=== PATIENT | male | born 1930 | race Caucasian/White ===

== ENCOUNTER 2017-06-22 14:46 | Inpatient (IN) | payer MEDICARE ==
[2017-06-22] MEDS ORDERED: Albuterol/Ipratropium 3.0-0.5 MG/3 ML Neb Soln NEB ONE (14:53)
--- NOTE | 2017-06-22 14:53 | EDM.PDOC ---
ED HPI GENERAL MEDICAL PROBLEM - General Stated Complaint: SOB Time Seen by Provider: 06/22/17 14:46 Source of Information: Reports: Patient, Family History Limitations: Reports: Physical Impairment - History of Present Illness INITIAL COMMENTS - FREE TEXT/NARRATIVE: 86 y.o.w.m with h/o Colon CA and COPD came with hie caregiver to the ED due to SOB. Pt takes inhales. His POA called, she wants him to be admitted because she is on her way to [place] and pt was vomiting 3 times today. Pulse ox was 88 on RA. Pt denies other acute medical issues. 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 Pain Score (Numeric/FACES): 4 denies when asked Pain Score (Numeric/FACES): 0 - Related Data Allergies Allergy/AdvReac Type Severity Reaction Status Date / Time No Known Allergies Allergy Verified 06/22/17 15:23 Home Meds: Home Meds Albuterol [Ventolin HFA] 2 puff INH Q4H PRN 06/22/17 [History] Budesonide/Formoterol [Symbicort 160-4.5 MCG] 2 puff IH BID 06/22/17 [History] Cholecalciferol (Vitamin D3) [D3-2000] 2,000 unit PO DAILY 06/22/17 [History] Hypromellose [Genteal Mild] 1 drop EYEBOTH BID 06/22/17 [History] Ipratropium/Albuterol Sulfate [Iprat-Albut 0.5-3(2.5) mg/3 ml] 3 ml IH BID 06/22 [History] Omeprazole 20 mg PO DAILY 06/22/17 [History] Polyethylene Glycol 3350 [MiraLAX] 17 gm PO BID 06/22/17 [History] Tiotropium [Spiriva Handihaler] 18 mcg IH DAILY 06/22/17 [History] Vit A/Vit C/Vit E/Zinc/Copper [Preservision] 2 each PO DAILY 06/22/17 [History] Albuterol/Ipratropium [DuoNeb 3.0-0.5 MG/3 ML] 3 ml INH ONETIME PRN neb [Rx] Levofloxacin [Levaquin] 500 mg PO Q24H 7 Days tablet 06/25/17 [Rx] Topiramate [Topamax] 25 mg PO BID #60 tablet 06/25/17 [Rx] predniSONE [Prednisone] 20 mg PO BID #10 tablet 06/25/17 [Rx] Past Medical History Neurological History: Reports: Other (See Below) Other Neuro History: forgetful - Past Surgical History GI Surgical History: Reports: Colonoscopy Social & Family History - Tobacco Use Smoking Status *Q: Former Smoker - Alcohol Use Days Per Week of Alcohol Use: 7 Number of Drinks Per Day: 1 Total Drinks Per Week: 7 - Recreational Drug Use Recreational Drug Use: No ED ROS GENERAL - Review of Systems Review Of Systems: Unable To Obtain ED EXAM, GENERAL - Physical Exam Exam: See Below Exam Limited By: Physical Impairment General Appearance: Alert, WD/WN, Mild Distress, Obese Eye Exam: Bilateral Eye: Normal Inspection Ears: Normal External Exam Ear Exam: Bilateral Ear: Auricle Normal Nose: Normal Inspection, Normal Mucosa Throat/Mouth: Normal Inspection, Normal Lips Head: Atraumatic, Normocephalic Neck: Normal Inspection, Supple, Non-Tender Respiratory/Chest: Respiratory Distress, Wheezing, Prolonged Expiration Cardiovascular: Normal Peripheral Pulses, Regular Rate, Rhythm, No Edema, No Gallop Peripheral Pulses: 1+: Radial (R) GI/Abdominal: Soft, Non-Tender, No Organomegaly, Distended, Tender (colostomy bag in place), Abnormal Bowel Sounds (Male) Exam: Deferred Rectal (Males) Exam: Deferred Back Exam: Normal Inspection, Full Range of Motion Extremities: Normal Inspection, Normal Range of Motion Neurological: Alert, Oriented, CN II-XII Intact, Normal Cognition, Abnormal Gait (weakness) Psychiatric: Normal Affect, Normal Mood Skin Exam: Warm, Dry, Intact, Normal Color, No Rash Lymphatic: No Adenopathy Course - Vital Signs Text/Narrative:: 86 y.o.w.m with h/o Colon CA and COPD came with hie caregiver to the ED due to SOB. Pt takes inhales. His POA called, she wants him to be admitted because she is on her way to [place] and pt was vomiting 3 times today. Pulse ox was 88 on RA. Pt denies other acute medical issues. BP 133/66 pulse ox 88 on RA pulse 83 temp 35.6 PE: COPD, Abd. dyscomfort Imaging: CXR: CAPD Abd. small mass in pelvis (Dr. Asencio) CT abd/pelvis: Partial SBO/prolapsed small bowel through anal canal Labs: WBC Nl Impression: COPD exacerbation, Partial SBO/prolapst small bowel through anal canal, H/O Colon CA Tx: Duonem, Solumedrol, Zofran Reexam: Pt improved 9.32pm: Consultation: Dr. Hines, Surgeon: Admit for obs, no acute surgical procedure indicated. 9.45pm: Consultation: Dr. Garcia: Accepted the pt for admission OBS plan: Admit to OBS Last Recorded V/S: Last Vital Signs Temp 36.9 C 06/25/17 08:00 Pulse 88 06/25/17 08:00 Resp 18 06/25/17 08:00 BP 140/74 06/25/17 08:00 Pulse Ox 91 L 06/25/17 08:00 - Orders/Labs/Meds Labs: Laboratory Tests 06/22/17 06/22/17 06/22/17 Range/Units 15:15 15:15 15:15 WBC 10.2 (4.5-12.0) X10-3/uL RBC 4.82 (4.30-5.75) x10(6)uL Hgb 15.9 H (11.5-15.5) g/dL Hct 47.2 (30.0-51.3) % MCV 97.9 H (80-96) fL MCH 33.0 (27.7-33.6) pg MCHC 33.7 (32.2-35.4) g/dL RDW 13.8 (11.5-15.5) % Plt Count 275 (125-369) X10(3)uL MPV 8.2 (7.4-10.4) fL Add Manual Diff Yes Neutrophils % (Manual) 89 H (46-82) % Lymphocytes % (Manual) 3 L (13-37) % Monocytes % (Manual) 8 (4-12) % PT 12.0 H (8.7-11.1) INR 1.19 H (0.89-1.13) Sodium 141 (135-145) mmol/L Potassium 4.6 (3.5-5.3) mmol/L Chloride 102 (100-110) mmol/L Carbon Dioxide 29 (21-32) mmol/L BUN 21 H (7-18) mg/dL Creatinine 1.1 (0.70-1.30) mg/dL Est Cr Clr Drug Dosing TNP Estimated GFR (MDRD) > 60 (>60) BUN/Creatinine Ratio 19.1 (9-20) Glucose 143 H (80-116) mg/dL Calcium 9.8 (8.6-10.2) mg/dL Total Bilirubin 0.9 (0.1-1.3) mg/dL Direct Bilirubin 0.23 H (0.10-0.20) mg/dL AST 17 (5-25) IU/L ALT 18 (12-36) U/L Alkaline Phosphatase 85 (56-112) IU/L NT-Pro-B Natriuret Pep (<=450) pg/mL Total Protein 8.0 (6.0-8.0) g/dL Albumin 3.9 (3.2-4.6) g/dL Amylase 45 (25-115) U/L 06/22/17 Range/Units 15:15 WBC (4.5-12.0) X10-3/uL RBC (4.30-5.75) x10(6)uL Hgb (11.5-15.5) g/dL Hct (30.0-51.3) % MCV (80-96) fL MCH (27.7-33.6) pg MCHC (32.2-35.4) g/dL RDW (11.5-15.5) % Plt Count (125-369) X10(3)uL MPV (7.4-10.4) fL Add Manual Diff Neutrophils % (Manual) (46-82) % Lymphocytes % (Manual) (13-37) % Monocytes % (Manual) (4-12) % PT (8.7-11.1) INR (0.89-1.13) Sodium (135-145) mmol/L Potassium (3.5-5.3) mmol/L Chloride (100-110) mmol/L Carbon Dioxide (21-32) mmol/L BUN (7-18) mg/dL Creatinine (0.70-1.30) mg/dL Est Cr Clr Drug Dosing Estimated GFR (MDRD) (>60) BUN/Creatinine Ratio (9-20) Glucose (80-116) mg/dL Calcium (8.6-10.2) mg/dL Total Bilirubin (0.1-1.3) mg/dL Direct Bilirubin (0.10-0.20) mg/dL AST (5-25) IU/L ALT (12-36) U/L Alkaline Phosphatase (56-112) IU/L NT-Pro-B Natriuret Pep 582 H (<=450) pg/mL Total Protein (6.0-8.0) g/dL Albumin (3.2-4.6) g/dL Amylase (25-115) U/L Meds: Medications Discontinued Medications Generic Name Dose Route Start Last Admin Trade Name Freq PRN Reason Stop Dose Admin Albuterol/Ipratropium 3 ml 06/22/17 14:53 06/22/17 14:59 Duoneb 3.0-0.5 Mg/3 Ml NEB 06/22/17 14:54 3 ml ONETIME ONE Administration Albuterol/Ipratropium 3 ml 06/22/17 21:50 Duoneb 3.0-0.5 Mg/3 Ml INH ONETIME PRN Shortness Of Breath/wheezing Artificial Tears 0 ml 06/23/17 10:13 06/25/17 08:45 Genteal Mild To Moderate Ophth Soln EYEBOTH 1 drop BID MIKEL Administration Cholecalciferol 2,000 units 06/24/17 09:00 Vitamin D3 PO DAILY MIKEL Diatrizoate Meglum/Diatrizoate Sod 30 ml 06/22/17 19:15 06/22/17 19:39 Gastrografin 37% PO 30 ml . DIRECTED MIKEL Administration Haloperidol 5 mg 06/23/17 10:51 06/23/17 11:45 Haldol PO 06/23/17 10:52 Not Given ONETIME ONE Haloperidol Lactate 2.5 mg 06/23/17 09:18 Haldol IM Q8H PRN Agitation Sodium Chloride 1,000 mls @ 125 mls/hr 06/23/17 00:45 06/23/17 00:35 Normal Saline IV 125 mls/hr ASDIRECTED MIKEL Administration Iopamidol 100 ml 06/22/17 19:11 06/22/17 19:39 Isovue-370 (76%) IV 06/22/17 19:12 100 ml . DIRECTED ONE Administration Levofloxacin 500 mg 06/24/17 09:15 06/25/17 08:46 Levaquin PO 500 mg Q24H MIKEL Administration Methylprednisolone Sodium Succinate 125 mg 06/22/17 14:59 06/22/17 16:02 Solu-Medrol IVPUSH 06/22/17 15:00 125 mg ONETIME ONE Administration Methylprednisolone Sodium Succinate 125 mg 06/22/17 22:15 06/23/17 00:11 Solu-Medrol IVPUSH Not Given Q8H MIKEL Methylprednisolone Sodium Succinate 125 mg 06/23/17 00:00 06/24/17 15:33 Solu-Medrol IVPUSH Not Given Q8H MIKEL Mometasone Furoate/Formoterol Fumar 2 puff 06/23/17 10:30 06/25/17 08:44 Dulera 200-5 Mcg IH 2 puff BID MIKEL Administration Pantoprazole Sodium 40 mg 06/23/17 10:30 06/24/17 15:33 Protonix Iv IVPUSH Not Given DAILY MIKEL Pantoprazole Sodium 40 mg 06/23/17 15:11 06/25/17 06:07 Protonix PO 40 mg 0600 MIKEL Administration Polyethylene Glycol 17 gm 06/24/17 09:00 06/25/17 08:45 Miralax PO 17 gm BID MIKEL Administration Prednisone 20 mg 06/23/17 15:15 06/25/17 08:46 Prednisone PO 20 mg BID MIKEL Administration Sodium Chloride 10 ml 06/22/17 16:06 06/23/17 00:26 Saline Flush FLUSH 10 ml ASDIRECTED PRN Administration Keep Vein Open Tiotropium [place] 18 mcg 06/23/17 09:00 06/25/17 08:46 Spiriva Handihaler INH 1 cap DAILY MIKEL Administration Topiramate 25 mg 06/23/17 15:15 06/25/17 08:46 Topamax PO 25 mg BID MIKEL Administration Vit C/Vit E/Zinc/Copper/Lutein 2 each 06/24/17 09:00 06/25/17 08:45 Ocuvite Lutein PO 2 each DAILY MIKEL Administration Departure - Departure Time of Disposition: 08:00 Disposition: Refer to Observation Condition: Fair Clinical Impression: COPD (chronic obstructive pulmonary disease) with chronic bronchitis - Discharge Information
[2017-06-22] MEDS ORDERED: methylPREDNISolone Sodium Succinate 125 MG/2 ML SDV IVPUSH ONE (14:59)
[2017-06-22] MEDS: Sodium Chloride 0.9% 10 ML Syringe FLUSH PRN ×2 (16:00→18:05)
[2017-06-22] MEDS ORDERED: Iopamidol 755 Mg/ML 100 ML Bottle IV ONE (19:11)
[2017-06-22] MEDS ORDERED: Diatrizoate Meglumine/Diatrizoate Sodium 37% 30 ML Bottle PO SCH (19:15)
[2017-06-22] MEDS ORDERED: Albuterol/Ipratropium 3.0-0.5 MG/3 ML Neb Soln INH PRN (21:50)
[2017-06-22] MEDS ORDERED: methylPREDNISolone Sodium Succinate 125 MG/2 ML SDV IVPUSH SCH (22:15)
[2017-06-23] MEDS: Sodium Chloride 0.9% 10 ML Syringe FLUSH PRN (00:26)
[2017-06-23] MEDS: methylPREDNISolone Sodium Succinate 125 MG/2 ML SDV IVPUSH SCH (00:26)
[2017-06-23] MEDS ORDERED: Sodium Chloride 0.9% 1,000 ML IV SCH (00:45)
--- NOTE | 2017-06-23 08:29 | CR ---
INDICATION: Short of breath. CHEST: A single AP upright portable view of the chest was obtained 06/22/2017. No comparisons were available. The heart did not appear enlarged. There appears to be some minimal calcification in the arch of the aorta. Heavy markings are noted at the left lung base, raising question of patchy pneumonia in that area versus fibrosis. No gross consolidating pneumonia or definite effusion was identified. The lungs appear to be hyperaerated with slightly flattened diaphragm leaves and interdigitation at the right hemidiaphragm leaf to a minimal degree. This suggests the possibility of COPD and should be correlated clinically. IMPRESSION: 1. No definite acute process, but cannot exclude patchy bronchopneumonia at the left lung base. 2. ASD aorta. 3. Possible COPD - correlate clinically. MTDD
--- NOTE | 2017-06-23 08:39 | CR ---
INDICATION: Abdominal pain, vomiting, history of colon CA February 2010. ABDOMEN: Four images of the abdomen in supine and upright projection were obtained 06/22/2017 and compared with line palletizer view from CT of the abdomen dated , again revealing cholecystectomy clips. The pattern of gas and feces revealed some minimal air-fluid levels in the right flank, which is in the area of a colostomy. The air-fluid levels are of questionable significance. No other significant air -fluid levels or dilatation of bowel was identified to strongly suggest a mechanically obstructive process. No free air was seen. Diaphragm leaves appear somewhat flattened, suggesting COPD. A rounded mass-like density is noted in the right pelvis of questionable significance. Etiology is indeterminate. CT may be warranted depending upon clinical correlation. Initially a repeat abdomen x-ray series may be helpful. Evidence of bowel surgery is again noted in this post rectal CA patient. No other suggestion of mass lesions or organomegaly could be identified. Calcifications are noted in the iliac and femoral arteries and minimally in the aorta. IMPRESSION: 1. Air-fluid levels in the right flank of questionable significance, could be related to a localized inflammatory process, could be incidental due to fluid ingestion. Follow-up may be warranted depending upon clinical correlation of that finding. 2. Rounded mass suggested in the right pelvis measuring approximately 42 mm. A true mass could be present. Follow-up may be warranted such as repeat x-ray of the abdomen or possibly CT for confirmation. 3. ASD. 4. Post cholecystectomy. 5. COPD. MTDD
[2017-06-23] MEDS ORDERED: Polyethylene Glycol 3350 Powder 17 GM Packet PO SCH (09:00)
[2017-06-23] MEDS ORDERED: Cholecalciferol (Vitamin D3) 1,000 Unit Tab PO SCH (09:00)
[2017-06-23] MEDS ORDERED: Haloperidol Lactate 5 MG/ML SDV IM PRN (09:18)
[2017-06-23] MEDS ORDERED: methylPREDNISolone Sodium Succinate 125 MG/2 ML SDV IVPUSH SCH (09:30)
--- NOTE | 2017-06-23 10:25 | PCM.HP ---
H&P History of Present Illness - General Date of Service: 06/23/17 Admit Problem/Dx: Admission Diagnosis/Problem Admission Diagnosis/Problem Abdominal pain Source of Information: Family, Old Records History Limitations: Reports: Uncooperative - History of Present Illness Initial Comments - Free Text/Narative: Sanjay came in yesterday today because of increased shortness of breath and abdominal pain. He was brought in by the caregiver. His symptoms apparently started a few days ago. He saw Dr. Stanley in the [facility] where he was diagnosed with a possible upper GI bleed,Dementia worsening. He also has COPD severe and his respiratory symptoms have worsened last couple days-hence the ER visit. Sanjay does not give much history and is uncooperative. 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 There is a h/o vomiting, coughing and having difficulty breathing. He is weaker.They feel that he might be considered for assisted placement. There is no report of any fever or chills ,and the abdominal pain is poorly localized and described. - Related Data Allergies/Adverse Reactions: Allergies Allergy/AdvReac Type Severity Reaction Status Date / Time No Known Allergies Allergy Verified 06/22/17 15:23 Home Medications: Home Meds Albuterol [Ventolin HFA] 2 puff INH Q4H PRN 06/22/17 [History] Budesonide/Formoterol [Symbicort 160-4.5 MCG] 2 puff IH BID 06/22/17 [History] Cholecalciferol (Vitamin D3) [D-2000] 2,000 unit PO DAILY 06/22/17 [History] Hypromellose [Genteal Mild] 1 drop EYEBOTH BID 06/22/17 [History] Ipratropium/Albuterol Sulfate [Iprat-Albut 0.5-3(2.5) mg/3 ml] 3 ml IH BID 06/22 [History] Omeprazole [Omeprazole] 20 mg PO DAILY 06/22/17 [History] Polyethylene Glycol 3350 [MiraLAX] 17 gm PO BID 06/22/17 [History] Tiotropium [Spiriva Handihaler] 18 mcg IH DAILY 06/22/17 [History] Vit A/Vit C/Vit E/Zinc/Copper [Preservision] 2 each PO DAILY 06/22/17 [History] Past Medical History HEENT History: Reports: Glaucoma, Impaired Vision Other HEENT History: wears glasses Cardiovascular History: Reports: SOB on Exertion, Other (See Below) Other Cardiovascular History: Wears TEDs during the day. Respiratory History: Reports: COPD Gastrointestinal History: Reports: Other (See Below) Other Gastrointestinal History: stomach ulcer Neurological History: Reports: Other (See Below) Other Neuro History: forgetful Psychiatric History: Reports: Dementia Oncologic (Cancer) History: Reports: Colon - Past Surgical History GI Surgical History: Reports: Colonoscopy Social & Family History - Family History Family Medical History: Noncontributory - Tobacco Use Smoking Status *Q: Former Smoker Used Tobacco, but Quit: No Second Hand Smoke Exposure: No - Caffeine Use Caffeine Use: Reports: Coffee Other Caffeine Use: De-caf coffee. - Alcohol Use Days Per Week of Alcohol Use: 7 Number of Drinks Per Day: 1 Total Drinks Per Week: 7 - Recreational Drug Use Recreational Drug Use: No H&P Review of Systems - Review of Systems: Review Of Systems: ROS reveals no pertinent complaints other than HPI. Exam - Exam Exam: See Below - Vital Signs Vital Signs: Last Vital Signs Temp 97.1 F 06/23/17 08:00 Pulse 122 H 06/23/17 08:00 Resp 20 06/23/17 08:00 BP 165/80 H 06/23/17 08:00 Pulse Ox 88 L 06/23/17 08:00 Weight: 70.715 kg - Exam Quality Assessment: No: Supplemental Oxygen General: Alert. No: Cooperative Psychiatric: Agitated, Other (belligerent,paranoic thoughts) Physical Exam Comments:: Patient declines any form of examination. He believes I am here to "harm" him. he wants to know the "truth".He does appear to be paranoic. Has respitarory distress but didn't refuses to use oxygenation. His thought process is illogical. - Patient Data Result Diagrams: 06/22/17 15:15 06/22/17 15:15 *Q Meaningful Use (ADM) - VTE *Q VTE Criteria *Q: - Stroke *Q Stroke Criteria *Q: - AMI *Q AMI Criteria *Q: - Problem List (1) COPD (chronic obstructive pulmonary disease) SNOMED Code(s): 51579643 ICD Code: J44.9 - CHRONIC OBSTRUCTIVE PULMONARY DISEASE, UNSPECIFIED Status : Acute Current Visit: Yes Qualifiers: COPD type: COPD with acute exacerbation Qualified Code(s): J44.1 - Chronic obstructive pulmonary disease with (acute) exacerbation (2) Dementia SNOMED Code(s): 41991205 ICD Code: F03.90 - UNSPECIFIED DEMENTIA WITHOUT BEHAVIORAL DISTURBANCE Status: Acute Current Visit: Yes Qualifiers: Dementia type: Alzheimer's disease Alzheimer's disease onset: late-onset Dementia behavioral disturbance: with behavioral disturbance Qualified Code(s) : G30.1 - Alzheimer's disease with late onset; F02.81 - Dementia in other diseases classified elsewhere with behavioral disturbance; F02.81 - Dementia in other diseases classified elsewhere with behavioral disturbance; F02.81 - Dementia in other diseases classified elsewhere with behavioral disturbance (3) General weakness SNOMED Code(s): 53572923 ICD Code: R53.1 - WEAKNESS Status: Acute Current Visit: Yes (4) Colostomy complication, unspecified SNOMED Code(s): 76640283 ICD Code: K94.00 - COLOSTOMY COMPLICATION, UNSPECIFIED Status: Acute Priority: Low Current Visit: No Problem List Initiated/Reviewed/Updated: Yes Orders Last 24hrs: Active Orders 24 hr Category Date Time Status Patient Status Manage Transfer [TRANSFER] Routine ADT 06/23/17 09:22 Active Notify Provider Consults [RC] ASDIRECTED Care 06/23/17 09:26 Active Consult to Physician [CONS] Stat Cons 06/23/17 09:26 Ordered BASIC METABOLIC PANEL,BMP [CHEM] AM Lab 06/24/17 05:11 Ordered CBC WITH AUTO DIFF [HEME] AM Lab 06/24/17 05:11 Ordered Budesonide/Formoterol [Symbicort 160-4.5 MCG] Med 06/24/17 09:00 Ordered 10.2 mcg IH DAILY Cholecalciferol (Vitamin D3) [Vitamin D3] Med 06/24/17 09:00 Active 2,000 units PO DAILY Haloperidol Lactate [Haldol] Med 06/23/17 09:18 Active 2.5 mg IM Q8H PRN Hypromellose [GenTeal Mild to Moderate Ophth Soln] Med 06/23/17 10:13 Active 0 ml EYEBOTH BID Lutein/Min/Vit C/Vit E Acetate [Ocuvite Lutein] Med 06/24/17 09:00 Active 2 each PO DAILY Omeprazole [Omeprazole] Med 06/24/17 09:00 Ordered 20 mg PO DAILY Pantoprazole [ProTONIX IV] Med 06/23/17 10:30 Ordered 40 mg IVPUSH DAILY Polyethylene Glycol 3350 [MiraLAX] Med 06/23/17 21:00 Ordered 17 gm PO BID Sodium Chloride 0.9% [Normal Saline] 1,000 ml Med 06/23/17 00:45 Active IV ASDIRECTED Tiotropium [Spiriva HandiHaler] Med 06/24/17 09:00 Ordered 18 mcg INH DAILY methylPREDNISolone Sod Succ [Solu-MEDROL] Med 06/23/17 00:00 Active 125 mg IVPUSH Q8H Resuscitation Status Routine Resus Stat 06/23/17 09:26 Ordered Medication Orders Albuterol/Ipratropium (Duoneb 3.0-0.5 Mg/3 Ml) 3 ml INH ONETIME PRN PRN Reason: Shortness Of Breath/wheezing Artificial Tears (Genteal Mild To Moderate Ophth Soln) 0 ml EYEBOTH BID [facility] Cholecalciferol (Vitamin D3) 2,000 units PO DAILY [facility] Haloperidol Lactate (Haldol) 2.5 mg IM Q8H PRN PRN Reason: Agitation Sodium Chloride (Normal Saline) 1,000 mls @ 125 mls/hr IV ASDIRECTED MIKEL Last Admin: 06/23/17 00:35 Dose: 125 mls/hr Methylprednisolone Sodium Succinate (Solu-Medrol) 125 mg IVPUSH Q8H [facility] Last Admin: 06/23/17 00:26 Dose: 125 mg Non-Formulary Medication (Budesonide/Formoterol [Symbicort 160-4.5 Mcg]) 10.2 mcg IH DAILY [facility] Non-Formulary Medication (Omeprazole [Omeprazole]) 20 mg PO DAILY MIKEL Polyethylene Glycol (Miralax) 17 gm PO BID [facility] Sodium Chloride (Saline Flush) 10 ml FLUSH ASDIRECTED PRN PRN Reason: Keep Vein Open Last Admin: 06/23/17 00:26 Dose: 10 ml Admin: 06/22/17 18:05 Dose: 10 ml Admin: 06/22/17 16:00 Dose: 10 ml Tiotropium [place] (Spiriva Handihaler) 18 mcg INH DAILY [facility] Vit C/Vit E/Zinc/Copper/Lutein (Ocuvite Lutein) 2 each PO DAILY [facility] Assessment/Plan Comment:: I will give the patient some Haldol to control his behavior. I asked Dr. Mccormick to see him for consultation and wisdom on what to do for his colostomy and possible small bowel obstruction. For now keep him nothing by mouth. I've ordered Solu Medrol IV it is able to retain the IV, after the haldol given.other discussion with his POA who would like him placed DNR. We'll also consult physical therapy, biomedical repair technician and Tele Psych.
[2017-06-23] MEDS ORDERED: Pantoprazole 40 MG Vial IVPUSH SCH (10:30)
[2017-06-23] MEDS ORDERED: Haloperidol 5 MG Tab PO ONE (10:51)
[2017-06-23] MEDS: Formoterol/Mometasone 200-5 MCG 8.8 GM Inhaler IH SCH ×3 (11:44→20:25)
[2017-06-23] MEDS: Hypromellose 0.3% Ophth Soln 15 ML Bottle EYEBOTH SCH ×3 (11:44→20:26)
[2017-06-23] MEDS: Tiotropium Inhaler 18 MCG Inhalation Powder Cap Kit of 5 INH SCH ×2 (11:44→14:57)
--- NOTE | 2017-06-23 12:20 | PCM.SN ---
- Free Text/Narrative Note: pt examined and chart reviewed. consult dictated. no evidence of obstruction. the perineal hernia is a long standing issue and is reducible. would apply duoderm to the area of the hernia to prevent skin breakdown.
[2017-06-23] MEDS ORDERED: Topiramate 25 MG Tab PO SCH (15:15)
[2017-06-23] MEDS: Pantoprazole 40 MG Tab.CR PO SCH (15:39)
[2017-06-23] MEDS: predniSONE 20 MG Tab PO SCH ×2 (15:39→20:26)
[2017-06-23] MEDS: Topiramate 50 MG Tab PO SCH ×2 (15:57→20:29)
--- NOTE | 2017-06-23 16:44 | CONS ---
DATE OF CONSULTATION: 06/23/2017 REASON FOR CONSULTATION: Peritoneal hernia, questionable partial obstruction. INDICATIONS FOR PROCEDURE: Mr. Ray is an 86-year-old white male, who is status post a low anterior resection secondary to an anal carcinoma in the past. He has a known history of a peritoneal hernia with some herniation of small intestine through the spot where his anus was excised with an abdominoperineal resection. This was first documented in 2013. Apparently, last night he was brought into the emergency department because of an increase in shortness of breath and abdominal pain. On CT scan, he was noted to have what appeared to be a possible partial small-bowel obstruction from this hernia. On questioning today, the patient denies any abdominal pain, he is uncooperative and has been refusing care through the course of the day. There have been no further episodes of vomiting from what I can ascertain. He is an extremely poor historian. ALLERGIES: He has no known drug allergies. MEDICATIONS: 1. Albuterol inhaler. 2. Symbicort inhaler. 3. Vitamin D3. 4. GenTeal Mild one drop for each eye. 5. Ipratropium-albuterol inhaler b.i.d. 6. Omeprazole 20 mg daily. 7. MiraLAX 17 g p.o. twice a day. 8. Spiriva HandiHaler. 9. PreserVision two twice a day. PAST MEDICAL HISTORY: Significant for glaucoma and impaired vision. Has a history of COPD. Has a history of peripheral edema. Has a past medical history of stomach ulcer as well as the dementia and the anal cancer. PAST SURGICAL HISTORY: Significant for abdominoperineal resection and colonoscopy in the past. FAMILY HISTORY: Noncontributory. SOCIAL HISTORY: He is a former smoker. Does drink decaf coffee and does have a drink per week. REVIEW OF SYSTEMS: Unobtainable due to lack of the patient's cooperation. PHYSICAL EXAMINATION: GENERAL: This is a well-developed, well-nourished male appearing in no acute distress, sitting in his chair. VITAL SIGNS: Temperature is 36.2, he has a pulse rate of 122, blood pressure 165/80, and an O2 saturation of 88% on room air. HEENT: Grossly within normal limits. LUNGS: Clear to auscultation. HEART: Had a regular rate and rhythm. ABDOMEN: Soft, nontender with material in his colostomy bag. Evaluation of his perineum reveals a peritoneal hernia with a small area of irritation in the skin, but no sign of ulceration or sinus tract. LABORATORY DATA: Laboratory evaluation yesterday revealed a white count of 10.2 and H and H of 15.9 and 47.2 with a platelet count of 275. PT and INR were 12 and 1.19 respectively. His electrolytes were essentially unremarkable. BUN was up slightly at 21, glucose of 143, direct bilirubin was 0.23, which was elevated. Total bilirubin was 0.9 and his BNP was 582. ASSESSMENT: With regard to his perineal hernia, he demonstrates absolutely no evidence of obstruction. The hernia appears to be functioning. The ostomy appears to be functioning and is not demonstrating any evidence of an obstruction. This is a longstanding problem. The hernia itself is reducible. Therefore, I do not think it is playing any role in any type of partial small- bowel obstruction. I would recommend the application of a small DuoDERM to the area on his peritoneal cavity to prevent further skin breakdown as this is just a red spot with no further injury. He is an extremely poor surgical candidate for any type of repair and at this point, close observation and close skin care is indicated. /[id number] CELESTINE/PAYAL EVANGELISTA
[2017-06-24] MEDS: Pantoprazole 40 MG Tab.CR PO SCH (05:39)
--- NOTE | 2017-06-24 08:49 | CONS ---
DATE OF CONSULTATION: 06/23/2017 A 60-minute clinical event. IDENTIFICATION: The patient is an 86-year-old male who was admitted to the inpatient medical unit at [facility] in [place], [place]. He is seen for psychiatric consultation. CHIEF COMPLAINT: "There was a big sign on top of the building that said hotel." HISTORY OF PRESENT ILLNESS: The patient is an 86-year-old male who has a history of dementia, but has been residing at his own place in [place], [place] with the assistance of [facility]. Evidently, one of his support team was visiting the patient yesterday and became concerned because he was appearing to be short of breath and complaining of some abdominal pain. He was brought to the emergency room for evaluation and after being assessed and given some Solu-Medrol to help with the shortness of breath, he was subsequently admitted to the inpatient medical unit. Evidently, since being admitted to the medical unit, the patient has been refusing his prescribed medications and he has been belligerent towards staff and acting paranoid and confused. Staff is stating that he has calmed down over the last few hours, but he is being assessed now for his belligerence and also in part to see if he is able to go back into his private home setting or whether he needs to be transferred over to an inpatient geriatric unit or Alzheimer's unit. The patient is stating that he has been struggling with confusion for some time now, but that he simply was out working and got tired and he states that he saw a sign that said hotel and so he came over to the building "to spend the night". When it turned out that he was in a medical facility, he states that he was a little upset about the turn of events. He states at this point in time he feels good and he would like to go home. He denies any issues from a medical or psychiatric standpoint. He states he is just upset about being at the hospital, not able to go home. He is alert and oriented to himself and to the city, but he does not know what day of the week it is and he is evasive with a lot of questions posed to him, but he does acknowledge he has been having trouble with his memory. One of his care workers who is there who helps him once a week by preparing meals states that he has episodes of confusion and that this is one of the worse episodes that she has seen, but staff is reporting that he seems more calm over the last few hours. MEDICATIONS: At the time of presentation, 1. MiraLAX. 2. Symbicort. 3. Omeprazole. 4. Vitamin D. 5. Eyedrops. ALLERGIES: No known drug allergies. PAST MEDICAL HISTORY: 1. Status post colostomy, remote. 2. The patient was admitted to rule out a GI obstruction and further workup of his shortness of breath. FAMILY PSYCHIATRIC AND CD HISTORY: None reported. PAST PSYCHIATRIC AND CD HISTORY: None reported. SOCIAL HISTORY: The patient is originally from [place], [place]. He has never been . He has no biological children. He is not involved in any current relationships. He is currently living in a home in [place], [place] with [facility] [employer] b.i.d. daily and also has another resource that helps prepare his meals on a weekly basis. 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 MENTAL STATUS EXAM: The patient is an 86-year-old white male in no apparent distress. Speech of regular rate and rhythm. The patient is cognitively oriented x1 to self, with prodding to city, but certainly not to date. Gait and station are not observed. This patient is seated for the appropriate psychiatric inpatient consult. Mood is upset. Affect is consistent with stated mood and also confused. There is no behavioral or stated evidence of acute suicidal or homicidal ideation or acute delusional symptoms or psychotic symptoms although there are paranoid themes present. Thought process, does again appeared confused. There are no acute maniac symptoms or loose associations evident. Judgement and insight do appear impaired secondary to his likely dementia condition. Motivation for help is fair. VITAL SIGNS: Stable at the time of consult. IMPRESSION: Conconully I: 1. Dementia, not otherwise specified, F03.90. 2. Depression, not otherwise specified, F32.9. 3. Anxiety disorder, not otherwise specified, F41.9. 4. Rule out psychosis, not otherwise specified, F29. 5. Rule out bipolar affect disease, mixed type. F31.60. Conconully II: None. Conconully III: 1. Status post colostomy, remote. 2. The patient being worked up for gastrointestinal obstruction. 3. Shortness of breath of unknown etiology. Conconully IV: Severe. Conconully V: 50 to 55. PLAN: 1. Recommend Topamax initiation 25 mg every day to b.i.d. dosing to help with mood lability. 2. Recommended when patient is medically stabilized as soon as he has his existing support services in place that he can be discharged back to home. 3. If the patient is uncooperative or his condition deteriorates from a behavioral standpoint or medical standpoint where he is not able to go back to his residence, then would recommend placement in a more structured living environment such as [facility] or [facility] Facility, but again as long as the patient is cooperative and able to take his meds and has support services in place, once he is medically stabilized, would appear more beneficial for the patient to try to have him placed back in the home to see if he can continue to function there as he has previously been doing. 4. We will continue follow up with the patient on an as needed basis while he remains on the inpatient medical unit. 5. We will follow up with the patient sooner if any complications in the interim. 6. Medication compliance. 7. Crisis plan is in place. /[id number] MURALI/PAYAL
[2017-06-24] MEDS ORDERED: Cholecalciferol (Vitamin D3) 1,000 Unit Tab PO SCH (09:00)
[2017-06-24] MEDS ORDERED: Non-Formulary Medication 1 Each (Omeprazole [Omeprazole] 20 MG) PO SCH (09:00)
[2017-06-24] MEDS: Formoterol/Mometasone 200-5 MCG 8.8 GM Inhaler IH SCH ×2 (09:04→20:24)
[2017-06-24] MEDS: Hypromellose 0.3% Ophth Soln 15 ML Bottle EYEBOTH SCH ×2 (09:06→20:25)
[2017-06-24] MEDS: Lutein/Minerals/Vitamin C/Vitamin E Acetate Cap PO SCH (09:09)
[2017-06-24] MEDS: Polyethylene Glycol 3350 Powder 17 GM Packet PO SCH ×2 (09:09→20:28)
[2017-06-24] MEDS: predniSONE 20 MG Tab PO SCH ×2 (09:10→20:29)
[2017-06-24] MEDS: Topiramate 50 MG Tab PO SCH ×2 (09:11→20:30)
--- NOTE | 2017-06-24 09:12 | PCM.PN ---
- General Info Date of Service: 06/24/17 Subjective Update: Patient's mood is much better this morning. He is more cooperative. I spoke to Lena HU-answered questions and her and the caregiver agreed that he is improved in terms of his mental status after Topamax was started yesterday. I appreciate the consultations from Dr. Mccormick and Isak. Functional Status: Reports: Pain Controlled - Review of Systems General: Reports: No Symptoms HEENT: Reports: No Symptoms Pulmonary: Reports: Shortness of Breath, Cough Gastrointestinal: Reports: No Symptoms - Patient Data Vitals - Most Recent: Last Vital Signs Temp 97.8 F 06/24/17 04:30 Pulse 103 H 06/24/17 04:30 Resp 20 06/24/17 04:30 BP 162/76 H 06/24/17 04:30 Pulse Ox 91 L 06/24/17 04:30 Weight - Most Recent: 70.715 kg Lab Results Last 24 Hours: Laboratory Results - last 24 hr 06/24/17 06/24/17 Range/Units 06:45 06:45 WBC 8.7 (4.5-12.0) X10-3/uL RBC 3.92 L (4.30-5.75) x10(6)uL Hgb 13.1 (11.5-15.5) g/dL Hct 38.8 (30.0-51.3) % MCV 99.1 H (80-96) fL MCH 33.4 (27.7-33.6) pg MCHC 33.7 (32.2-35.4) g/dL RDW 13.6 (11.5-15.5) % Plt Count 210 (125-369) X10(3)uL MPV 8.3 (7.4-10.4) fL Add Manual Diff Yes Neutrophils % (Manual) 91 H (46-82) % Lymphocytes % (Manual) 5 L (13-37) % Monocytes % (Manual) 4 (4-12) % Sodium 139 (135-145) mmol/L Potassium 4.2 (3.5-5.3) mmol/L Chloride 104 (100-110) mmol/L Carbon Dioxide 27 (21-32) mmol/L BUN 32 H D (7-18) mg/dL Creatinine 0.9 (0.70-1.30) mg/dL Est Cr Clr Drug Dosing 57.00 mL/min Estimated GFR (MDRD) > 60 (>60) BUN/Creatinine Ratio 35.6 H (9-20) Glucose 119 H (80-116) mg/dL Calcium 8.8 (8.6-10.2) mg/dL Med Orders - Current: Current Medications Albuterol/Ipratropium (Duoneb 3.0-0.5 Mg/3 Ml) 3 ml INH ONETIME PRN PRN Reason: Shortness Of Breath/wheezing Artificial Tears (Genteal Mild To Moderate Ophth Soln) 0 ml EYEBOTH BID [facility] Last Admin: 06/23/17 20:26 Dose: 1 drop Haloperidol Lactate (Haldol) 2.5 mg IM Q8H PRN PRN Reason: Agitation Mometasone Furoate/Formoterol Fumar (Dulera 200-5 Mcg) 2 puff IH BID [facility] Last Admin: 06/23/17 20:25 Dose: 2 puff Pantoprazole Sodium (Protonix) 40 mg PO 0600 [facility] Last Admin: 06/24/17 05:39 Dose: 40 mg Polyethylene Glycol (Miralax) 17 gm PO BID [facility] Prednisone (Prednisone) 20 mg PO BID [facility] Last Admin: 06/23/17 20:26 Dose: 20 mg Tiotropium Horse Shoe (Spiriva Handihaler) 18 mcg INH DAILY [facility] Last Admin: 06/23/17 14:57 Dose: 1 cap Topiramate (Topamax) 25 mg PO BID [facility] Last Admin: 06/23/17 20:29 Dose: 25 mg Vit C/Vit E/Zinc/Copper/Lutein (Ocuvite Lutein) 2 each PO DAILY [facility] Discontinued Medications Albuterol/Ipratropium (Duoneb 3.0-0.5 Mg/3 Ml) 3 ml NEB ONETIME ONE Stop: 06/22/17 14:54 Last Admin: 06/22/17 14:59 Dose: 3 ml Cholecalciferol (Vitamin D3) 2,000 units PO DAILY [facility] Diatrizoate Meglum/Diatrizoate Sod (Gastrografin 37%) 30 ml PO . DIRECTED [facility] Last Admin: 06/22/17 19:39 Dose: 30 ml Haloperidol (Haldol) 5 mg PO ONETIME ONE Stop: 01/24/18 10:52 Last Admin: 06/23/17 11:45 Dose: Not Given Sodium Chloride (Normal Saline) 1,000 mls @ 125 mls/hr IV ASDIRECTED MIKEL Last Admin: 06/23/17 00:35 Dose: 125 mls/hr Iopamidol (Isovue-370 (76%)) 100 ml IV . DIRECTED ONE Stop: 06/22/17 19:12 Last Admin: 06/22/17 19:39 Dose: 100 ml Methylprednisolone Sodium Succinate (Solu-Medrol) 125 mg IVPUSH ONETIME ONE Stop: 06/22/17 15:00 Last Admin: 06/22/17 16:02 Dose: 125 mg Methylprednisolone Sodium Succinate (Solu-Medrol) 125 mg IVPUSH Q8H [facility] Last Admin: 06/23/17 00:11 Dose: Not Given Methylprednisolone Sodium Succinate (Solu-Medrol) 125 mg IVPUSH Q8H [facility] Last Admin: 06/23/17 00:26 Dose: 125 mg Pantoprazole Sodium (Protonix Iv) 40 mg IVPUSH DAILY [facility] Sodium Chloride (Saline Flush) 10 ml FLUSH ASDIRECTED PRN PRN Reason: Keep Vein Open Last Admin: 06/23/17 00:26 Dose: 10 ml - Exam General: Alert HEENT: Pupils Equal Neck: Supple Lungs: Decreased Breath Sounds Cardiovascular: Regular Rate Psy/Mental Status: Alert, Normal Mood - Problem List & Annotations (1) COPD (chronic obstructive pulmonary disease) SNOMED Code(s): 28610906 Code(s): J44.9 - CHRONIC OBSTRUCTIVE PULMONARY DISEASE, UNSPECIFIED Status : Acute Current Visit: Yes Qualifiers: COPD type: COPD with acute exacerbation Qualified Code(s): J44.1 - Chronic obstructive pulmonary disease with (acute) exacerbation (2) Dementia SNOMED Code(s): 45148858 Code(s): F03.90 - UNSPECIFIED DEMENTIA WITHOUT BEHAVIORAL DISTURBANCE Status: Acute Current Visit: Yes Qualifiers: Dementia type: Alzheimer's disease Alzheimer's disease onset: late-onset Dementia behavioral disturbance: with behavioral disturbance Qualified Code(s) : G30.1 - Alzheimer's disease with late onset; F02.81 - Dementia in other diseases classified elsewhere with behavioral disturbance; F02.81 - Dementia in other diseases classified elsewhere with behavioral disturbance; F02.81 - Dementia in other diseases classified elsewhere with behavioral disturbance (3) General weakness SNOMED Code(s): 34538086 Code(s): R53.1 - WEAKNESS Status: Acute Current Visit: Yes (4) Colostomy complication, unspecified SNOMED Code(s): 00672517 Code(s): K94.00 - COLOSTOMY COMPLICATION, UNSPECIFIED Status: Acute Priority: Low Current Visit: No - Problem List Review Problem List Initiated/Reviewed/Updated: Yes - My Orders Last 24 Hours: My Active Orders 06/23/17 15:11 Pantoprazole [ProTONIX] 40 mg PO 0600 06/23/17 15:15 Topiramate [Topamax] 25 mg PO BID predniSONE 20 mg PO BID 06/24/17 08:00 CHIP Hose [Antiembolic Hose] [OM.PC] Routine 06/24/17 09:00 Polyethylene Glycol 3350 [MiraLAX] 17 gm PO BID - Plan Plan:: The plan is to keep Don one more day, continue oral prednisone and Topamax as previously prescribed. I've also added Levaquin orally -CXR was inconclusive for pneumonia-that he will continue on perhaps finish the course as an outpatient. Once again I appreciate the consultations from Dr. Parisi and Dr. Mccormick.
[2017-06-24] MEDS: Tiotropium Inhaler 18 MCG Inhalation Powder Cap Kit of 5 INH SCH (09:14)
[2017-06-24] MEDS: Levofloxacin 500 MG Tab PO SCH (10:36)
[2017-06-24] MEDS: methylPREDNISolone Sodium Succinate 125 MG/2 ML SDV IVPUSH SCH (15:33)
[2017-06-25] MEDS: Pantoprazole 40 MG Tab.CR PO SCH (06:07)
[2017-06-25] MEDS: Formoterol/Mometasone 200-5 MCG 8.8 GM Inhaler IH SCH (08:44)
[2017-06-25] MEDS: Polyethylene Glycol 3350 Powder 17 GM Packet PO SCH (08:45)
[2017-06-25] MEDS: Lutein/Minerals/Vitamin C/Vitamin E Acetate Cap PO SCH (08:45)
[2017-06-25] MEDS: Hypromellose 0.3% Ophth Soln 15 ML Bottle EYEBOTH SCH (08:45)
[2017-06-25] MEDS: Levofloxacin 500 MG Tab PO SCH (08:46)
[2017-06-25] MEDS: Tiotropium Inhaler 18 MCG Inhalation Powder Cap Kit of 5 INH SCH (08:46)
[2017-06-25] MEDS: predniSONE 20 MG Tab PO SCH (08:46)
[2017-06-25] MEDS: Topiramate 50 MG Tab PO SCH (08:46)
[2017-06-25 08:51] VITALS: BP 140/74
--- NOTE | 2017-06-25 13:30 | DISCH ---
DISCHARGE DATE: 06/25/2017 HOSPITAL COURSE: Sanjay Ray is an 86-year-old male, admitted with complicated shortness of breath, abdominal pain, underlying COPD. He was admitted. Chest x-ray revealed COPD and some early pneumonia changes. CT scan revealed an abdominal hernia with small-bowel obstruction. Was seen by Dr. Mccormick, felt to be nonsurgical. Was given a course of intravenous antibiotics and corticosteroids with increasing respiratory benefit. He was seen by Dr. Parisi in Telepsychiatry and recommendations, was started on Topamax 25 mg b.i.d. with good clinical improvement. At the time of discharge, was up, ambulating, colostomy was working well, mood appeared to be stabilized. We will ask caregivers in place. DISCHARGE MEDICATIONS: Please see med recon list. /[id number] LISE/PAYAL
--- NOTE | 2017-06-25 13:45 | DISCH ---
DISCHARGE DATE: 06/25/2017 DISCHARGE DIAGNOSES: Shortness of breath, abdominal pain, respiratory difficulty. HOSPITAL COURSE: Mr. Ray is an 86-year-old male admitted on 06/23/2017 with complicated abdominal pain, shortness of breath, and evidence of respiratory compromise underlying COPD. He was admitted to the hospital. Diagnostic studies were performed. CT scan revealed no major pathology, partial small bowel obstruction, and some herniation. He was seen by Dr. Mccormick. Nonsurgical in nature. Appetite improved. Breathing was comfortable, responded to antibiotic therapy and corticosteroid intervention. He was seen by Dr. Moreno Parisi in Psychiatry. Started on Topamax. DISPOSITION: At the time of discharge, he was comfortable. Colostomy was draining well, support services were in place, intervention and care as appropriate. DISCHARGE MEDICATIONS: Please see med recon list. /[id number] /PAYAL
== END 2017-06-25 11:26 | disposition home or self-care (01) | DRG 191 ==
LOC: FB.ED 14:46 → FB.MS 21:50 → FB.ED 21:50 → OBSVTOIN 06-23 09:33
PROVIDERS: ADMIT Family Medicine; ATTEND Family Medicine
DX: J44.1 Chronic obstructive pulmonary disease with (acute) exacerbation (principal); F02.81 Dementia in other diseases classified elsewhere, unspecified severity, with behavioral disturbance; K45.8 Other specified abdominal hernia without obstruction or gangrene; Z85.048 Personal history of other malignant neoplasm of rectum, rectosigmoid junction, and anus; Z93.3 Colostomy status; Z66 Do not resuscitate; Z87.891 Personal history of nicotine dependence; G30.1 Alzheimer's disease with late onset; R53.1 Weakness; R10.9 Unspecified abdominal pain; R06.02 Shortness of breath; R11.10 Vomiting, unspecified; H54.7 Unspecified visual loss; H40.9 Unspecified glaucoma; Z90.49 Acquired absence of other specified parts of digestive tract; Z87.11 Personal history of peptic ulcer disease; Z79.52 Long term (current) use of systemic steroids
CPT/HCPCS: 36415; 71045; 71260; 74019; 74177; 80048; 80076; 82150; 83880; 85025; 85610; 94640; 96374; 99285; A9270 ×2; J2930 ×2; J7040; J7050 ×3; J7620; Q9967; 96376; G0378; J7030; Q3014-GT

== ENCOUNTER 2018-08-08 14:01 | Inpatient (IN) | payer MEDICARE ==
[2018-08-08] MEDS ORDERED: Albuterol 8 GM Inhaler INH PRN (15:33)
--- NOTE | 2018-08-08 15:44 | CR ---
INDICATION: Hypoxia. CHEST: PA and lateral views of the chest were obtained 08/08/18 and compared with 06/22/17, revealing the heart to be normal in size and shape. The aorta is calcified in the arch area . Findings compatible with COPD are noted. There appears to be some infiltrate at the left lung base and also at the right lung base posteriorly. The left lung base infiltrate is suggested in the lingula. The right lung base infiltrate - atelectasis is suggested in the right lower lobe. There may be some pleuritis on the right with some blunting of the posterior sulcus on the right. No gross consolidating pneumonia or large effusion is identified. Somewhat diminished bone density raises question of osteomalacia or osteoporosis and should be correlated clinically. IMPRESSION: 1. Bibasilar parenchymal and right pleural changes, compatible with pneumonia and pleuritis at the right lower lobe and minimal pneumonia and/or fibrosis at the left lung base - lingula. 2. COPD. 3. ASD aorta. 4. Possible demineralization raising question of osteoporosis - correlate clinically. MTDD
[2018-08-08] MEDS ORDERED: Azithromycin 500 MG in Sodium Chloride 0.9% 250 ML IV ONE (16:02)
[2018-08-08] MEDS ORDERED: cefTRIAXone 1 GM in Sodium Chloride 0.9% 50 ML IV SCH (16:15)
[2018-08-08] MEDS: Sodium Chloride 0.9% 1,000 ML IV SCH (16:57)
[2018-08-08] MEDS: cefTRIAXone 1 GM Vial IVPUSH SCH (17:02)
[2018-08-08] MEDS: Polyethylene Glycol 3350 Powder 17 GM Packet PO SCH ×2 (20:55→21:00)
[2018-08-08] MEDS: Hypromellose 0.3% Ophth Soln 15 ML Bottle EYEBOTH SCH ×2 (20:55→21:00)
[2018-08-08] MEDS: Formoterol/Mometasone 200-5 MCG 8.8 GM Inhaler IH SCH (20:55)
[2018-08-08] MEDS: Albuterol/Ipratropium 3.0-0.5 MG/3 ML Neb Soln NEB SCH (20:56)
[2018-08-08] MEDS ORDERED: TOPIRAMATE 25 MG PO SCH (21:00)
--- NOTE | 2018-08-08 22:14 | HP ---
ADMISSION DATE: 08/08/2018 CHIEF COMPLAINT: Weakness and hypoxia. HISTORY OF PRESENT ILLNESS: Chase is an 87-year-old man from [place], with a history of severe COPD with previous pneumonias, colorectal cancer, status post permanent colostomy, and history of dementia. According to his caregiver who accompanies him, he has had declining strength over the past 2 weeks. He normally is able to get himself up and out of a chair and walk and feed himself normally. He has been not eating and drinking for the past few days and he has had a cough. He was seen in the clinic by Dr. Hale today and found to have an O2 saturation of 66% on room air, and he is now admitted. Chase is unable to give me a good history. He denies any current pain, but does have an obvious cough, weakness. PAST MEDICAL HISTORY: 1. Colectomy for colorectal cancer with colonoscopy. 2. Chronic COPD with previous pneumonias. 3. He has had history of gastric ulcer. 4. Chronic advancing dementia. 5. General decline in condition. MEDICATIONS: 1. DuoNeb with nebulizer at home. 2. Albuterol MDI. 3. Seroquel 25 mg at bedtime. 4. Spiriva HandiHaler one puff daily. 5. Omeprazole 20 mg daily. 6. Vitamin D3 2000 units daily. 7. Multiple vitamin with lutein one daily. 8. Artificial Tears b.i.d. ALLERGIES: None known. HABITS: Former smoker, none currently. No alcohol. FAMILY AND SOCIAL HISTORY: The patient is single, never been . He lives in his own apartment in [place] and has a daily caregiver and is looked after by his niece as well, Lena Bryant. REVIEW OF SYSTEMS: Not reliably obtainable from the patient, but negative for apparent fever. Positive for weakness, dyspnea, poor appetite, poor oral intake. No vomiting or diarrhea. No skin rash or swelling. PHYSICAL EXAMINATION: GENERAL: He is pale, thin, weak and quite cachectic. VITAL SIGNS: Blood pressure 134/57, pulse 88 and regular, temperature 98.4, O2 saturation 91% on 4 L nasal cannula oxygen, weight 146 pounds. SKIN: Anicteric. Warm, dry. HEENT: Shows his mouth to be dry and parched. LUNGS: Have rales at the left base. Distant breath sounds bilaterally. HEART: Regular without murmur or gallop. ABDOMEN: Normal bowel sounds. Soft and nontender. He has a functioning colostomy in the left lower quadrant with soft stool in the bag. EXTREMITIES: Warm and well perfused without edema. NEUROLOGIC: Reveals him to have the obvious dementia. He is able to answer with one-word sentences, and he moves his arms and legs spontaneously but has generalized weakness. LABORATORY DATA: Chest x-ray shows left lower lobe pneumonia and severe COPD. Blood work is pending. ASSESSMENT: 1. An 87-year-old with severe chronic obstructive pulmonary disease and now admitted with left lower lobe pneumonia and respiratory failure. 2. Chronic obstructive pulmonary disease. 3. Dementia. 4. History of colorectal cancer with proctocolectomy and colostomy. 5. History of gastric ulcer. PLAN: He is admitted to the hospital. We will continue his DNR status. We will treat him with IV antibiotics, fluid resuscitation, test him for influenza, and continue his nebulizer treatments. We will provide palliative care measures for Sanjay's obviously declining state of health, his underlying dementia, etc. /[id number] CHAS/PAYAL
[2018-08-09] MEDS: Pantoprazole 40 MG Tab.CR PO SCH (06:26)
[2018-08-09] MEDS ORDERED: Azithromycin 250 MG in Sodium Chloride 0.9% 250 ML IV ONE ×2 (07:09→17:00)
[2018-08-09] MEDS ORDERED: Iopamidol 755 Mg/ML 75 ML Bottle IV ONE (10:32)
[2018-08-09] MEDS: Albuterol/Ipratropium 3.0-0.5 MG/3 ML Neb Soln NEB SCH ×2 (10:32→21:35)
[2018-08-09] MEDS: Hypromellose 0.3% Ophth Soln 15 ML Bottle EYEBOTH SCH ×2 (10:36→21:36)
[2018-08-09] MEDS: Formoterol/Mometasone 200-5 MCG 8.8 GM Inhaler IH SCH ×2 (10:37→21:31)
[2018-08-09] MEDS: Tiotropium Inhaler 18 MCG Inhalation Powder Cap Kit of 5 INH SCH (10:38)
--- NOTE | 2018-08-09 10:38 | PN ---
DATE SEEN: 08/09/2018 HISTORY: Sanjay is an 87-year-old man with COPD and a history of colectomy and colostomy for colon cancer and dementia. He was admitted yesterday because of decline in general condition, cough, dyspnea, and weakness. He was found to have bilateral bibasilar pneumonia and had failed outpatient therapy with Levaquin. He is now on triple antibiotics IV. PHYSICAL EXAMINATION: GENERAL: Sanjay is awake and alert this morning. He still has forgetfulness, but is less confused than last night. VITAL SIGNS: Blood pressure 121/57, pulse 70 and regular, respirations 20, O2 saturation 96% on room air, temp 97.7, weight 146 pounds. SKIN: Clear without rash. HEENT: Mouth is dry. LUNGS: Basilar rales. HEART: Regular without murmur or gallop. ABDOMEN: Soft and nontender. Colostomy bag with soft contents. EXTREMITIES: Show no edema. LABORATORY DATA: On admission, normal CBC, creatinine 0.9, glucose this morning 92. Troponin less than 0.017. ASSESSMENT: 1. Bilateral pneumonia. 2. Chronic obstructive pulmonary disease. 3. Colostomy post colorectal cancer. 4. Dementia. PLAN: We will continue triple antibiotics today. Plan to convert his azithromycin to oral starting tomorrow if he is alert and cooperative and able to take p.o. well. We will continue his inhalation treatments for the COPD and provide palliative care measures for his underlying dementia, severe COPD, and general debility. I anticipate another 48 hours of acute hospital stay followed by plans to return to his apartment with full-time aide. /[id number] CHAS/PAYAL
[2018-08-09] MEDS: Polyethylene Glycol 3350 Powder 17 GM Packet PO SCH ×2 (10:39→21:38)
[2018-08-09] MEDS: Sodium Chloride 0.9% 10 ML Syringe FLUSH PRN ×2 (12:50→13:05)
--- NOTE | 2018-08-09 13:57 | CT ---
INDICATION: Infiltrate. CT CHEST WITHOUT CONTRAST: Spiral 3.75 mm axial sections were obtained through the chest without contrast, 08/09/18, with sagittal and coronal reconstructions and compared with 06/22/17. Total exam DLP = 454.81 mGy-cm. No mediastinal mass was identified. Calcification is noted in the arch of the aorta and brachiocephalic vessels, as well as coronary arteries. The heart, however, was not grossly enlarged. No pericardial effusion was seen. Pulmonary arteries are again somewhat dilated but unchanged from the previous study. A moderate sized fixed hiatal hernia is noted. A mild degree of mediastinal lymphadenopathy is again noted and is nonspecific. A large fatty mass is noted posteriorly and inferiorly at the left lung base, compatible with a stable lipoma. The upper abdomen included on the study showed evidence of cholecystectomy, left -sided colostomy, mild renal cortical scarring, and calcifications in the aorta , renal arteries, and origin of the celiac axis in the splenic artery and origin of the superior mesenteric artery. In the lungs, there are again noted heavy markings in the right lower lobe, left lower lobe and lingula, and minimally in the left upper lobe and in both apical areas to a mild degree. There is also suggestion, as previously, of some minimal fibrotic change at the apical portion of the right lower lobe. However, no evidence of a definite active infiltrate, effusion, or significant interval change was identified. A mild degree of emphysematous change is suggested. IMPRESSION: 1. Stable appearance of the chest. No acute abnormality is suggested. 2. Areas of probable pulmonary fibrosis are again noted and appear unchanged from the previous study. 3. 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 4. ASHD/ASD. 5. Post cholecystectomy. 6. Mild renal cortical scarring. 7. Left anterolateral abdominal wall colostomy. 8. Pulmonary arteries are again somewhat dilated but unchanged from the previous study. MTDD
[2018-08-09] MEDS: cefTRIAXone 1 GM Vial IVPUSH SCH (16:56)
[2018-08-09] MEDS: Sodium Chloride 0.9% 1,000 ML IV SCH (22:32)
[2018-08-10] MEDS: Pantoprazole 40 MG Tab.CR PO SCH (06:28)
--- NOTE | 2018-08-10 09:08 | PN ---
DATE SEEN: 08/10/2018 HISTORY OF PRESENT ILLNESS: History Don is an 87-year-old man with severe COPD, colostomy post colon cancer, and admission on 08/08/2018 for bilateral pneumonia. He had failed outpatient treatment with Levaquin. On admission, he was started on IV azithromycin, IV Rocephin, and IV vancomycin. His breathing and mental status improved significantly over the first 24 hours, and he states that he feels better this morning. PHYSICAL EXAMINATION: GENERAL: He is awake and able to answer questions appropriately. VITAL SIGNS: Blood pressure 120/61, pulse 66 and regular, respirations 20, O2 saturation 93% on 2 L nasal cannula, and weight 148 pounds 3 ounces. SKIN: Clear. MOUTH: Dry. LUNGS: Clear to the bases with good air movement. HEART: Regular without murmur or gallop. ABDOMEN: Soft and nontender. Colostomy in left lower quadrant appears to be functioning normally. EXTREMITIES: Show no edema. ASSESSMENT: Bibasilar pneumonia, improving. PLAN: We will discontinue his Rocephin and start him on oral Augmentin. After today's morning dose of vancomycin, we will also discontinue this. Plan for discharge tomorrow if he continues to be stable and improved. We will continue to provide palliative care measures for his underlying COPD and dementia. /[id number] CHAS/PAYAL
[2018-08-10] MEDS: Amoxicillin/Clavulanate K 875-125 MG Tab PO SCH ×2 (09:59→20:11)
[2018-08-10] MEDS: Formoterol/Mometasone 200-5 MCG 8.8 GM Inhaler IH SCH ×2 (10:00→20:33)
[2018-08-10] MEDS: Albuterol/Ipratropium 3.0-0.5 MG/3 ML Neb Soln NEB SCH ×2 (10:01→20:33)
[2018-08-10] MEDS: Hypromellose 0.3% Ophth Soln 15 ML Bottle EYEBOTH SCH ×2 (10:01→20:33)
[2018-08-10] MEDS: Tiotropium Inhaler 18 MCG Inhalation Powder Cap Kit of 5 INH SCH (10:01)
[2018-08-10] MEDS: Polyethylene Glycol 3350 Powder 17 GM Packet PO SCH ×2 (10:01→20:33)
[2018-08-10] MEDS: Sodium Chloride 0.9% 1,000 ML IV SCH (13:26)
[2018-08-10] MEDS: Azithromycin 250 MG Tab PO SCH (14:08)
[2018-08-11] MEDS: Sodium Chloride 0.9% 10 ML Syringe FLUSH PRN (00:20)
[2018-08-11] MEDS: Sodium Chloride 0.9% 1,000 ML IV SCH (03:00)
[2018-08-11] MEDS: Pantoprazole 40 MG Tab.CR PO SCH (05:28)
[2018-08-11] MEDS: Amoxicillin/Clavulanate K 875-125 MG Tab PO SCH ×2 (09:48→19:51)
[2018-08-11] MEDS: Hypromellose 0.3% Ophth Soln 15 ML Bottle EYEBOTH SCH ×2 (09:48→20:17)
[2018-08-11] MEDS: Formoterol/Mometasone 200-5 MCG 8.8 GM Inhaler IH SCH ×2 (09:49→20:17)
[2018-08-11] MEDS: Polyethylene Glycol 3350 Powder 17 GM Packet PO SCH ×2 (09:49→20:17)
[2018-08-11] MEDS: Albuterol/Ipratropium 3.0-0.5 MG/3 ML Neb Soln NEB SCH ×2 (09:49→20:17)
[2018-08-11] MEDS: Tiotropium Inhaler 18 MCG Inhalation Powder Cap Kit of 5 INH SCH (09:49)
--- NOTE | 2018-08-11 11:38 | PN ---
DATE SEEN: 08/11/2018 HISTORY: Sanjay is an 87-year-old man with severe COPD, who is admitted with pneumonia. He has been on IV and now oral antibiotics. His pneumonia has progressed nicely; however, he still remains significantly hypoxic. O2 saturation with his oxygen off, at rest, sitting in a chair, was 83%. For this reason, we will set up home O2 to be worn in a continuous manner at 1.5 L/minute nasal cannula. /[id number] CHAS/PAYAL
[2018-08-11] MEDS: Azithromycin 250 MG Tab PO SCH (14:07)
[2018-08-12] MEDS: Pantoprazole 40 MG Tab.CR PO SCH (06:04)
--- NOTE | 2018-08-12 07:33 | PCM.PN ---
- General Info Date of Service: 08/12/18 Admission Dx/Problem (Free Text): Patient denies shortness of breath. chest pain, coughing and wheezing, fevers, chills. - Patient Data Vitals - Most Recent: Last Vital Signs Temp 98.6 F 08/12/18 00:00 Pulse 94 08/12/18 00:00 Resp 18 08/12/18 00:00 BP 146/70 H 08/12/18 00:00 Pulse Ox 92 L 08/12/18 00:00 Weight - Most Recent: 148 lb 14.4 oz Chaitanya Results Last 24 Hours: Microbiology 08/08/18 17:00 Aerobic Blood Culture - Preliminary Blood - Venous - Lab Draw NO GROWTH AFTER 3 DAYS Anaerobic Blood Culture - Preliminary NO GROWTH AFTER 3 DAYS 08/08/18 16:55 Aerobic Blood Culture - Preliminary Blood - Venous NO GROWTH AFTER 3 DAYS Anaerobic Blood Culture - Preliminary NO GROWTH AFTER 3 DAYS Med Orders - Current: Current Medications Albuterol (Ventolin Hfa) 0 gm INH Q4H PRN PRN Reason: Dyspnea Albuterol/Ipratropium (Duoneb 3.0-0.5 Mg/3 Ml) 3 ml NEB BID [facility] Last Admin: 08/11/18 20:17 Dose: 3 ml Amoxicillin/Clavulanate Potassium (Augmentin 875 Mg/125 Mg) 1 tab PO Q12H [facility] Last Admin: 08/11/18 19:51 Dose: 1 tab Artificial Tears (Genteal Mild To Moderate Ophth Soln) 0 ml EYEBOTH BID [facility] Last Admin: 08/11/18 20:17 Dose: 1 drop Azithromycin (Zithromax) 250 mg PO DAILY@1400 [facility] Stop: 08/13/18 23:59 Last Admin: 08/11/18 14:07 Dose: 250 mg Mometasone Furoate/Formoterol Fumar (Dulera 200-5 Mcg) 2 puff IH BID [facility] Last Admin: 08/11/18 20:17 Dose: 2 puff Pantoprazole Sodium (Protonix) 40 mg PO DAILY@0600 [facility] Last Admin: 08/12/18 06:04 Dose: 40 mg Polyethylene Glycol (Miralax) 17 gm PO BID [facility] Last Admin: 08/11/18 20:17 Dose: 17 gm Tiotropium [place] (Spiriva Handihaler) 18 mcg INH DAILY [facility] Last Admin: 08/11/18 09:49 Dose: 1 inhalation Discontinued Medications Ceftriaxone Sodium (Rocephin) 1 gm IVPUSH Q24H [facility] Last Admin: 08/09/18 16:56 Dose: 1 gm Vancomycin HCl 1 gm/ Sodium (Chloride) 250 mls @ 167 mls/hr IV Q12H [facility] Stop: 08/10/18 12:00 Last Admin: 08/10/18 06:20 Dose: 167 mls/hr Azithromycin 500 mg/ Sodium (Chloride) 250 mls @ 250 mls/hr IV ONETIME ONE Stop: 08/08/18 17:01 Last Admin: 08/08/18 17:11 Dose: 250 mls/hr Sodium Chloride (Normal Saline) 1,000 mls @ 75 mls/hr IV ASDIRECTED [facility] Last Admin: 08/11/18 03:00 Dose: 75 mls/hr Azithromycin 250 mg/ Sodium (Chloride) 250 mls @ 250 mls/hr IV ONETIME ONE Stop: 08/09/18 17:59 Last Admin: 08/09/18 16:58 Dose: 250 mls/hr Iopamidol (Isovue-370 (76%)) 75 ml IV ONETIME ONE Stop: 08/09/18 10:33 Non-Formulary Medication (Topiramate [Topamax]) 25 mg PO BID [facility] Sodium Chloride (Saline Flush) 10 ml FLUSH ASDIRECTED PRN PRN Reason: Keep Vein Open Last Admin: 08/11/18 00:20 Dose: 10 ml Vancomycin HCl (Pharmacy To Dose - Vancomycin) 1 dose .XX ASDIRECTED [facility] - Exam General: Alert, Cooperative Lungs: Clear to Auscultation, Normal Respiratory Effort Cardiovascular: Regular Rate, Regular Rhythm, No Murmurs Extremities: No Pedal Edema - Problem List & Annotations (1) Pneumonia SNOMED Code(s): 805679612 Code(s): J18.9 - PNEUMONIA, UNSPECIFIED ORGANISM Status: Acute Current Visit: Yes Qualifiers: Laterality: left Lung location: lower lobe of lung (2) Palliative care status SNOMED Code(s): 854174503 Code(s): Z51.5 - ENCOUNTER FOR PALLIATIVE CARE Status: Acute Current Visit: Yes (3) COPD (chronic obstructive pulmonary disease) SNOMED Code(s): 00316112 Code(s): J44.9 - CHRONIC OBSTRUCTIVE PULMONARY DISEASE, UNSPECIFIED Status : Acute Current Visit: No Qualifiers: (4) Dementia SNOMED Code(s): 11688794 Code(s): F03.90 - UNSPECIFIED DEMENTIA WITHOUT BEHAVIORAL DISTURBANCE Status: Acute Current Visit: No Qualifiers: (5) General weakness SNOMED Code(s): 57631928 Code(s): R53.1 - WEAKNESS Status: Acute Current Visit: No - Problem List Review Problem List Initiated/Reviewed/Updated: Yes - Plan Plan:: Charge to home on Augmentin, Zithromax and home O2. He already has caregivers so he does not need home health.
--- NOTE | 2018-08-12 07:43 | PCM.DCSUM1 ---
Discharge Summary - Hospital Course Free Text/Narrative:: Hospital course-patient was admitted had a chest x-ray and started on triple therapy with vancomycin, Rocephin and Zithromax. He was given oxygen therapy with nasal cannula. Day 2 and 08/[address] scan of the chest showed pulmonary fibrosis a lipoma. Patient has a history of COPD and dementia but no steroids were used. On 08/09/18 his Zithromax was changed to oral and his oxygen was improving. 08/10 Rocephin was stopped Augmentin was started vancomycin was DC 'd. On 314 the patient was supposed to be discharged but the weather was so bad they could not live at home O2. Today he will be discharged on Augmentin, Zithromax and home O2. Here he has breathing treatments for COPD. He has steady caregivers so he does not need home health. Brief History: This is a 87-year-old male patient presented to the clinic because of shortness of breath cough and fever. He was found to have a O2 sat of 66% and was sent to the hospital for admission. He was found to have a left lower lobe pneumonia placed on vancomycin, Rocephin and Zithromax. Diagnosis: Stroke: No - Discharge Data Discharge Date: 08/12/18 Discharge Disposition: Home, Self-Care 01 Condition: Good - Discharge Diagnosis/Problem(s) (1) Pneumonia SNOMED Code(s): 898784269 ICD Code: J18.9 - PNEUMONIA, UNSPECIFIED ORGANISM Status: Acute Current Visit: Yes Qualifiers: Laterality: left Lung location: lower lobe of lung (2) Palliative care status SNOMED Code(s): 651058972 ICD Code: Z51.5 - ENCOUNTER FOR PALLIATIVE CARE Status: Acute Current Visit: Yes (3) COPD (chronic obstructive pulmonary disease) SNOMED Code(s): 94780659 ICD Code: J44.9 - CHRONIC OBSTRUCTIVE PULMONARY DISEASE, UNSPECIFIED Status : Acute Current Visit: No Qualifiers: (4) Dementia SNOMED Code(s): 46195943 ICD Code: F03.90 - UNSPECIFIED DEMENTIA WITHOUT BEHAVIORAL DISTURBANCE Status: Acute Current Visit: No Qualifiers: (5) General weakness SNOMED Code(s): 65335486 ICD Code: R53.1 - WEAKNESS Status: Acute Current Visit: No - Patient Instructions Diet: Regular Diet as Tolerated Activity: As Tolerated Driving: Do Not Drive Showering/Bathing: May Shower Notify Provider of: Fever Other/Special Instructions: 1. Recheck with Dr. Stanley in 1 week. 2. Home O2 per respiratory therapy recommendations. - Discharge Plan Prescriptions/Med Rec: Amoxicillin/Clavulanate K [Augmentin 875-125 MG] 1 tab PO Q12H #16 tablet Azithromycin [Zithromax] 250 mg PO DAILY@1400 #4 tablet Home Medications: Home Meds Albuterol [Ventolin HFA] 2 puff INH Q4H PRN 06/22/17 [History] Ipratropium/Albuterol Sulfate [Iprat-Albut 0.5-3(2.5) mg/3 ml] 3 ml IH BID 06/22 [History] Polyethylene Glycol 3350 [MiraLAX] 17 gm PO BID 06/22/17 [History] Tiotropium [Spiriva Handihaler] 18 mcg IH DAILY 06/22/17 [History] Vit A/Vit C/Vit E/Zinc/Copper [Preservision] 1 each PO BID 06/22/17 [History] Cholecalciferol (Vitamin D3) [Vitamin D3] 5,000 unit PO DAILY 08/08/18 [History] Propylene Glycol [Systane Complete] 1 drop EYEBOTH QID 08/08/18 [History] Topiramate [Topamax] 25 mg PO BEDTIME 08/08/18 [History] Amoxicillin/Clavulanate K [Augmentin 875-125 MG] 1 tab PO Q12H #16 tablet [Rx] Azithromycin [Zithromax] 250 mg PO DAILY@1400 #4 tablet 08/12/18 [Rx] Oxygen Therapy Mode: Nasal Cannula - Discharge Summary/Plan Comment DC Time >30 min.: No - Patient Data Vitals - Most Recent: Last Vital Signs Temp 98.6 F 08/12/18 00:00 Pulse 94 08/12/18 00:00 Resp 18 08/12/18 00:00 BP 146/70 H 08/12/18 00:00 Pulse Ox 92 L 08/12/18 00:00 Weight - Most Recent: 148 lb 14.4 oz DIMAS Results - Last 24 hrs: Microbiology 08/08/18 17:00 Aerobic Blood Culture - Preliminary Blood - Venous - Lab Draw NO GROWTH AFTER 3 DAYS Anaerobic Blood Culture - Preliminary NO GROWTH AFTER 3 DAYS 08/08/18 16:55 Aerobic Blood Culture - Preliminary Blood - Venous NO GROWTH AFTER 3 DAYS Anaerobic Blood Culture - Preliminary NO GROWTH AFTER 3 DAYS Med Orders - Current: Current Medications Albuterol (Ventolin Hfa) 0 gm INH Q4H PRN PRN Reason: Dyspnea Albuterol/Ipratropium (Duoneb 3.0-0.5 Mg/3 Ml) 3 ml NEB BID [facility] Last Admin: 08/11/18 20:17 Dose: 3 ml Amoxicillin/Clavulanate Potassium (Augmentin 875 Mg/125 Mg) 1 tab PO Q12H [facility] Last Admin: 08/11/18 19:51 Dose: 1 tab Artificial Tears (Genteal Mild To Moderate Ophth Soln) 0 ml EYEBOTH BID [facility] Last Admin: 08/11/18 20:17 Dose: 1 drop Azithromycin (Zithromax) 250 mg PO DAILY@1400 [facility] Stop: 08/13/18 23:59 Last Admin: 08/11/18 14:07 Dose: 250 mg Mometasone Furoate/Formoterol Fumar (Dulera 200-5 Mcg) 2 puff IH BID [facility] Last Admin: 08/11/18 20:17 Dose: 2 puff Pantoprazole Sodium (Protonix) 40 mg PO DAILY@0600 [facility] Last Admin: 08/12/18 06:04 Dose: 40 mg Polyethylene Glycol (Miralax) 17 gm PO BID [facility] Last Admin: 08/11/18 20:17 Dose: 17 gm Tiotropium [place] (Spiriva Handihaler) 18 mcg INH DAILY [facility] Last Admin: 08/11/18 09:49 Dose: 1 inhalation Discontinued Medications Ceftriaxone Sodium (Rocephin) 1 gm IVPUSH Q24H [facility] Last Admin: 08/09/18 16:56 Dose: 1 gm Vancomycin HCl 1 gm/ Sodium (Chloride) 250 mls @ 167 mls/hr IV Q12H [facility] Stop: 08/10/18 12:00 Last Admin: 08/10/18 06:20 Dose: 167 mls/hr Azithromycin 500 mg/ Sodium (Chloride) 250 mls @ 250 mls/hr IV ONETIME ONE Stop: 08/08/18 17:01 Last Admin: 08/08/18 17:11 Dose: 250 mls/hr Sodium Chloride (Normal Saline) 1,000 mls @ 75 mls/hr IV ASDIRECTED [facility] Last Admin: 08/11/18 03:00 Dose: 75 mls/hr Azithromycin 250 mg/ Sodium (Chloride) 250 mls @ 250 mls/hr IV ONETIME ONE Stop: 08/09/18 17:59 Last Admin: 08/09/18 16:58 Dose: 250 mls/hr Iopamidol (Isovue-370 (76%)) 75 ml IV ONETIME ONE Stop: 08/09/18 10:33 Non-Formulary Medication (Topiramate [Topamax]) 25 mg PO BID [facility] Sodium Chloride (Saline Flush) 10 ml FLUSH ASDIRECTED PRN PRN Reason: Keep Vein Open Last Admin: 08/11/18 00:20 Dose: 10 ml Vancomycin HCl (Pharmacy To Dose - Vancomycin) 1 dose .XX ASDIRECTED [facility] *Q Meaningful Use (DIS) - VTE *Q VTE Mechanical Contraindications *Q: At Risk for Falls
[2018-08-12 07:54] VITALS: BP 144/70
[2018-08-12] MEDS: Polyethylene Glycol 3350 Powder 17 GM Packet PO SCH (08:18)
[2018-08-12] MEDS: Hypromellose 0.3% Ophth Soln 15 ML Bottle EYEBOTH SCH (08:18)
[2018-08-12] MEDS: Amoxicillin/Clavulanate K 875-125 MG Tab PO SCH (08:18)
[2018-08-12] MEDS: Albuterol/Ipratropium 3.0-0.5 MG/3 ML Neb Soln NEB SCH (08:26)
[2018-08-12] MEDS: Tiotropium Inhaler 18 MCG Inhalation Powder Cap Kit of 5 INH SCH (09:06)
[2018-08-12] MEDS: Formoterol/Mometasone 200-5 MCG 8.8 GM Inhaler IH SCH (09:08)
[2018-08-12] MEDS: Azithromycin 250 MG Tab PO SCH (13:07)
== END 2018-08-12 14:10 | disposition home or self-care (01) | DRG 194 ==
LOC: FB.MS 14:01
PROVIDERS: ADMIT Family Medicine; ATTEND Family Medicine
DX: J18.1 Lobar pneumonia, unspecified organism (principal); J44.0 Chronic obstructive pulmonary disease with (acute) lower respiratory infection; Z51.5 Encounter for palliative care; Z66 Do not resuscitate; R09.02 Hypoxemia; J84.10 Pulmonary fibrosis, unspecified; Z87.891 Personal history of nicotine dependence; Z87.01 Personal history of pneumonia (recurrent); Z99.81 Dependence on supplemental oxygen; Z90.49 Acquired absence of other specified parts of digestive tract; Z93.3 Colostomy status; Z87.11 Personal history of peptic ulcer disease; Z85.038 Personal history of other malignant neoplasm of large intestine
CPT/HCPCS: 36415; 71046; 71250; 80053; 80202; 82962; 83605; 83735; 84484; 85025; 87040; 93005; 94640; A9270-GY; J0456; J0696; J3370; J7030; J7050; J7620-GY